=== PATIENT | male | born 1945 | race Caucasian/White ===

== ENCOUNTER 2016-05-10 20:04 | Emergency (ER) | payer OTHER ==
--- NOTE | 2016-05-10 23:26 | ED CLINICAL REPORT ---
Clinical Report - Physicians/Mid Levels [facility] [address] [place] [address] 05/10/2016 20:05 Patient: MARLENE HILLMAN Time Seen: 21:26. Arrived- By private vehicle. Historian- patient. HISTORY OF PRESENT ILLNESS Chief Complaint: FALL. Location of injuries- head. The injury occurred today. Fell. Occurred at home. The patient complains of moderate pain. The patient sustained a blow to the head. No neck pain, loss of consciousness or seizure. Not dazed. (The patient states that he was trying to get some boxes off of a high shelf and was standing about 6 feet up on a ladder in his garage. Patient tried to grab a shelf to hold onto as he was descending the ladder; however he accidentally grabbed a metal rail that was leaning against the shelving. Patient lost his balance and fell backward onto the concrete floor landing on his back and the back of his head. Patient states that he has had a headache since the incident and has felt somewhat dizzy. Patient states that he does feel pain on his "tailbone". He also states that back in his left shoulder hurts. Patient denies focal neurologic deficits no difficulty breathing or abdominal pain no chest pain no other complaints at this time.). REVIEW OF SYSTEMS No numbness, dizziness, loss of vision, hearing loss or chest pain. No difficulty breathing, weakness, nausea, abdominal pain or laceration. No fever, vomiting or urinary problems. The patient has had a headache but no pain on weight bearing. All systems otherwise negative, except as recorded above. PAST HISTORY Problems: Paget's Disease. Gerd. Hypertension. Additional Surgeries: Posterior Fossa Decompression. Prostatectomy. Sub dural hematoma. Medications: Calcium + D Oral. Multi-Vitamins Oral. Clobetasol Propionate External. ClonazePAM Oral 0.25 mg, at bedtime. Hydrochlorothiazide Oral 25 mg, daily. Aciphex Oral 20 mg, daily. Aspirin 81 mg, daily. Vitorin 1/40 ng q day. Allergies: NKDA. SOCIAL HISTORY Never smoker. No alcohol use or drug use. ADDITIONAL NOTES The nursing notes have been reviewed. PHYSICAL EXAM Vital Signs: 05/10/2016 20:43 BP: 150/94. HR: 91. RR: 16. O2 saturation: 99%. Temp: 98.7 F. Have been reviewed. Appearance: Alert. Oriented X3. No acute distress. Head: Occiput: moderate tenderness and mild swelling of the central and middle occiput. No erythema, laceration, abrasion, ecchymosis or puncture wound. No foreign body or deformity. Eyes: Pupils equal, round and reactive to light. EOM intact. ENT: No dental injury. Neck: Painless ROM. Non-tender. CVS: Heart sounds normal. Pulses normal. Respiratory: Breath sounds normal. Chest nontender. Abdomen: No visible injury. Soft and nontender. Back: Vertebral point tenderness (coccyx). ROM normal. Skin: Skin intact. Skin warm and dry. Normal skin color. Normal skin turgor. Extremities: Normal inspection. Left shoulder: moderate tenderness, mild swelling and medium sized ecchymosis. Limited ROM (diminished abduction). (involves scapula primarily). Pelvis stable. Extremities atraumatic. No lower extremity edema. Neuro: Oriented X 3. No motor deficit. No sensory deficit. LABS, X-RAYS, AND EKG Sacrum X-ray: No fracture, mass effect and bony lesion present. Soft tissues normal. Views: AP and lateral. Technique: good. The X-rays were independently viewed by me, interpreted by the radiologist and contemporaneously by me and discussed with the radiologist. Prior films were not available for comparison. Lt Scapula X-ray: No fracture. Normal alignment. No bony lesion, air in the soft tissue or foreign body. Soft tissues normal. Joint spaces normal. Views: AP and lateral. Technique: good. The X-rays were independently viewed by me and interpreted contemporaneously by me. Prior films were not available for comparison. CT Head: Normal study. No acute changes. No bony abnormalities, no hemorrhage, no intracranial mass, no midline shift and no hydrocephalus. No atrophy. Head CT performed without contrast. The study was independently viewed by me, interpreted by the radiologist and contemporaneously by me and discussed with the radiologist. Prior studies were not available for comparison. Pulse Oximetry: 05/10/2016 20:43 O2 saturation: 99%. (FIO2 - room air). Interpretation: normal. PROGRESS AND PROCEDURES C-Spine Status: Cervical spine cleared by history and physical exam. Patient alert and oriented times three and does not appear intoxicated. No distracting injury present. No complaint of neck pain. There is no neurological deficit or point tenderness on examination. Full cervical spine range of motion without pain. Course of Care: The patient was worked up in the emergency department for his pain secondary to trauma. X-rays of the scapula and sacrum/coccyx as well as head CT were unremarkable. No emergent condition was identified. Patient declined analgesia in the emergency department. Patient counseled in person regarding the patient's stable condition, test results, diagnosis and need for follow-up. Old medical records reviewed. Disposition: Discharged. Condition: stable. CLINICAL IMPRESSION Fall from ladder. (Sacral fracture). INSTRUCTIONS Apply ice. (Your head CT and shoulder x-rays look good. The top of your tailbone (sacrum) is cracked. This will heal on its own, in time. You may use a doughnut pillow to ease the discomfort of sitting. You may take pain medication, if needed.). Warnings: GENERAL WARNINGS: Return or contact your physician immediately if your condition worsens or changes unexpectedly, if not improving as expected, or if other problems arise. Your Current Medications: CONTINUE TAKING THE FOLLOWING MEDICATIONS: Aciphex Oral : 20 mg daily. Aspirin : 81 mg daily. Calcium + D Oral. Clobetasol Propionate External. ClonazePAM Oral : 0.25 mg at bedtime. Hydrochlorothiazide Oral : 25 mg daily. Multi-Vitamins Oral. Vitorin 1/40 ng q day*. Prescription Medications: Hydrocodone/APAP 5mg / 325mg: take 1-2 orally every 6 hours as needed for pain. Dispense fifteen (15). No refill. Follow-up: Follow up with your doctor as needed. Understanding of the discharge instructions verbalized by patient. (Electronically signed by Reina Tapia MD 05/20/2016 7:55)
--- NOTE | 2016-05-10 23:26 | ED ORDER SUMMARY ---
..... Patient: MARLENE HILLMAN OrderSheet [facility] VisitID: [id number] [address] [place] [address] 70y, M Registration Date/Time: 05/10/2016 ORDER SHEET Weight: 78.0 kg (stated) Allergies: NKDA GENERAL ORDERS: CT Head wo Cont Urgent (22:05/10/2016 Claudia GAN) (Ack 22:09 IJurca ER Tech1) (23:28 MCampbell) Scapula Left Urgent (22:05/10/2016 Claudia GAN) (Ack 22:09 IJurca ER Tech1) (23:28 MCampbell) Sacrum and Coccyx Urgent (22:05 05/10/2016 Claudia GAN) (Ack 22:09 MICHAELurca ER Tech1) (23:28 MCampbell) MEDICATION ORDERS: IV FLUIDS: ORDER SHEET NOTES: [Electronically signed by Ceci Jackson R.N. (00:03 05/11/2016)] [Electronically signed by Reina Tapia MD (07:55 05/20/2016)] [Electronically locked/signed by Ceci Jackson R.N. (00:03 05/11/2016)]
--- NOTE | 2016-05-10 23:26 | ED NURSING NOTES ---
Clinical Report - Nurses [facility] [address] [place] [address] 05/10/2016 20:05 Patient: MARLENE HILLMAN TRIAGE 20:25- rapid triage done in [facility]. Pt alert, oriented. no LOC at time of fall. pt painful but ok to wait in [facility] for triage. --20:26 Ceci Jackson R.N. Triage time 20:44. Chief Complaint: FALL 6-7 FEET OFF A LADDER, onto a concrete surface and landed on their back; lost balance (landed on back on top of chain saw,). 20:58. --20:58 Rand Coffey R.N. 20:43 05/10/16. BP: 150/94 taken on the right arm, via an automated monitor, while sitting. HR: 91 (regular, normal rate and strong). RR: 16 (regular, unlabored and normal). O2 saturation: 99% on room air. Temp: 98.7 F (oral). --20:58 Rand Coffey R.N. Acuity: LEVEL 3. --21:00 Rand Coffey R.N. Weight: 78 kg stated. Height/Length: 69 inches Per Patient. BMI: 25.4. --20:57 Rand Coffey R.N. Medications Aciphex Oral 20 mg, daily. Aspirin 81 mg, daily. Vitorin 1/40 ng q day. --20:48 Rand Coffey R.N. Hydrochlorothiazide Oral 25 mg, daily. --20:48 Rand Coffey R.N. ClonazePAM Oral 0.25 mg, at bedtime. --20:49 Rand Coffey R.N. Clobetasol Propionate External. --20:49 Rand Coffey R.N. Multi-Vitamins Oral. --20:50 Rand Coffey R.N. Calcium + D Oral. --20:51 Rand Coffey R.N. Allergies NKDA. --20:48 Rand Coffey R.N. History Arrived by private vehicle. Historian: patient. Unaccompanied. Location of injuries: back. This occurred (2 hours ago). Occurred at home. He has had back pain. PAST MEDICAL HX: Hypertension. SOCIAL HX: Never smoker. No alcohol use or drug use. FALL RISK ASSESSMENT: Fall risk assessment completed. No fall risk identified. NUTRITIONAL RISK ASSESSMENT: The nutritional risk assessment revealed no deficiencies. FUNCTIONAL ASSESSMENT: Functional assessment: no impairments noted. LEARNING NEEDS ASSESSMENT: The learning needs assessment revealed no barriers. SKIN INTEGRITY ASSESSMENT: Skin integrity risk assessment completed. No skin integrity risk identified. --20:58 Rand Coffey R.N. PROBLEMS: Gerd. Hypertension. --20:52 Rand Coffey R.N. Paget's Disease. --20:55 Rand Coffey R.N. ADDITIONAL SURGERIES: Prostatectomy. Sub dural hematoma. --20:55 Rand Coffey R.N. Posterior Fossa Decompression. --20:56 Rand Coffey R.N. Interventions ID band on patient. To waiting room. --21:00 Rand Coffey R.N. PHYSICAL ASSESSMENT Ambulatory to room. Patient gowned. GENERAL / NEURO / PSYCH: Alert. Oriented X 4. Appears in no acute distress. RESPIRATORY: Respirations not labored. CVS: Capillary refill less than 2 seconds. SKIN: Skin is warm and dry. --21:37 Ceci Jackson R.N. pt has psoriasis on lower back and states that he landed on a chainsaw. sm abrasion noted on lower back. --21:39 Ceci Jackson R.N. NURSING PROGRESS NOTES Two patient identifiers checked. Call light placed in reach. Side rails up x 1. Bed placed in lowest position. Brakes of bed on. --21:37 Ceci Jackson R.N. Patient ready for evaluation- chart flagged. --21:38 Ceci Jackson R.N. 21:39 05/10/16. BP: 159/67 taken while sitting. HR: 87. RR: 15. O2 saturation: 98% on room air. Porter-Dunne pain scale: 05/16. --21:40 Ceci Jackson R.N. Care transferred and report given (Ceci RN). --23:33 Fely Farrell R.N. DISPOSITION / DISCHARGE Condition at departure: stable. No learning barriers present. Discharge instructions provided and reviewed with the patient. Reviewed medication(s) side effects, precautions, dosing and course information. Prescription(s) given to the patient. Patient verbalized understanding. Written instructions provided in Syriac. The patient was discharged home. He left the Emergency Department ambulatory and via private vehicle. --00:02 Ceci Jackson R.N. 00:02 05/11/16. BP: 136/74. HR: 92. RR: 15. O2 saturation: 98% on room air. Porter-Dunne pain scale: 05/16. --00:02 Ceci Jackson R.N. Locked/Released at 05/11/2016 0:03 by Ceci Jackson R.N.
--- NOTE | 2016-05-10 23:26 | ED ORDER SUMMARY ---
..... Patient: MARLENE HILLMAN OrderSheet [facility] VisitID: [id number] [address] [place] [address] 70y, M Registration Date/Time: 05/10/2016 ORDER SHEET Weight: 78.0 kg (stated) Allergies: NKDA GENERAL ORDERS: CT Head wo Cont Urgent (22:05/10/2016 Claudia GAN) (Ack 22:09 IJurca ER Tech1) (23:28 MCampbell) Scapula Left Urgent (22:05/10/2016 Claudia GAN) (Ack 22:09 IJurca ER Tech1) (23:28 MCampbell) Sacrum and Coccyx Urgent (22:05 05/10/2016 Claudia GAN) (Ack 22:09 MICHAELurca ER Tech1) (23:28 MCampbell) MEDICATION ORDERS: IV FLUIDS: ORDER SHEET NOTES: [Electronically signed by Ceci Jackson R.N. (00:03 05/11/2016)] [Electronically signed by Reina Tapia MD (07:55 05/20/2016)] [Electronically locked/signed by Ceci Jackson R.N. (00:03 05/11/2016)]
--- NOTE | 2016-05-10 23:26 | ED NURSING NOTES ---
Clinical Report - Nurses [facility] [address] [place] [address] 05/10/2016 20:05 Patient: MARLENE HILLMAN TRIAGE 20:25- rapid triage done in [facility]. Pt alert, oriented. no LOC at time of fall. pt painful but ok to wait in [facility] for triage. --20:26 Ceci Jackson R.N. Triage time 20:44. Chief Complaint: FALL 6-7 FEET OFF A LADDER, onto a concrete surface and landed on their back; lost balance (landed on back on top of chain saw,). 20:58. --20:58 Rand Coffey R.N. 20:43 05/10/16. BP: 150/94 taken on the right arm, via an automated monitor, while sitting. HR: 91 (regular, normal rate and strong). RR: 16 (regular, unlabored and normal). O2 saturation: 99% on room air. Temp: 98.7 F (oral). --20:58 Rand Coffey R.N. Acuity: LEVEL 3. --21:00 Rand Coffey R.N. Weight: 78 kg stated. Height/Length: 69 inches Per Patient. BMI: 25.4. --20:57 Rand Coffey R.N. Medications Aciphex Oral 20 mg, daily. Aspirin 81 mg, daily. Vitorin 1/40 ng q day. --20:48 Rand Coffey R.N. Hydrochlorothiazide Oral 25 mg, daily. --20:48 Rand Coffey R.N. ClonazePAM Oral 0.25 mg, at bedtime. --20:49 Rand Coffey R.N. Clobetasol Propionate External. --20:49 Rand Coffey R.N. Multi-Vitamins Oral. --20:50 Rand Coffey R.N. Calcium + D Oral. --20:51 Rand Coffey R.N. Allergies NKDA. --20:48 Rand Coffey R.N. History Arrived by private vehicle. Historian: patient. Unaccompanied. Location of injuries: back. This occurred (2 hours ago). Occurred at home. He has had back pain. PAST MEDICAL HX: Hypertension. SOCIAL HX: Never smoker. No alcohol use or drug use. FALL RISK ASSESSMENT: Fall risk assessment completed. No fall risk identified. NUTRITIONAL RISK ASSESSMENT: The nutritional risk assessment revealed no deficiencies. FUNCTIONAL ASSESSMENT: Functional assessment: no impairments noted. LEARNING NEEDS ASSESSMENT: The learning needs assessment revealed no barriers. SKIN INTEGRITY ASSESSMENT: Skin integrity risk assessment completed. No skin integrity risk identified. --20:58 Rand Coffey R.N. PROBLEMS: Gerd. Hypertension. --20:52 Rand Coffey R.N. Paget's Disease. --20:55 Rand Coffey R.N. ADDITIONAL SURGERIES: Prostatectomy. Sub dural hematoma. --20:55 Rand Coffey R.N. Posterior Fossa Decompression. --20:56 Rand Coffey R.N. Interventions ID band on patient. To waiting room. --21:00 Rand Coffey R.N. PHYSICAL ASSESSMENT Ambulatory to room. Patient gowned. GENERAL / NEURO / PSYCH: Alert. Oriented X 4. Appears in no acute distress. RESPIRATORY: Respirations not labored. CVS: Capillary refill less than 2 seconds. SKIN: Skin is warm and dry. --21:37 Ceci Jackson R.N. pt has psoriasis on lower back and states that he landed on a chainsaw. sm abrasion noted on lower back. --21:39 Ceci Jackson R.N. NURSING PROGRESS NOTES Two patient identifiers checked. Call light placed in reach. Side rails up x 1. Bed placed in lowest position. Brakes of bed on. --21:37 Ceci Jackson R.N. Patient ready for evaluation- chart flagged. --21:38 Ceci Jackson R.N. 21:39 05/10/16. BP: 159/67 taken while sitting. HR: 87. RR: 15. O2 saturation: 98% on room air. Porter-Dunne pain scale: 05/16. --21:40 Ceci Jackson R.N. Care transferred and report given (Ceci RN). --23:33 Fely Farrell R.N. DISPOSITION / DISCHARGE Condition at departure: stable. No learning barriers present. Discharge instructions provided and reviewed with the patient. Reviewed medication(s) side effects, precautions, dosing and course information. Prescription(s) given to the patient. Patient verbalized understanding. Written instructions provided in Setswana. The patient was discharged home. He left the Emergency Department ambulatory and via private vehicle. --00:02 Ceci Jackson R.N. 00:02 05/11/16. BP: 136/74. HR: 92. RR: 15. O2 saturation: 98% on room air. Porter-Dunne pain scale: 05/16. --00:02 Ceci Jackson R.N. Locked/Released at 05/11/2016 0:03 by Ceci Jackson R.N.
--- NOTE | 2016-05-11 00:05 | DIAGNOSTIC IMAGING REPORT ---
PROCEDURE: XR SACRUM AND COCCYX INDICATION: TRAUMA/INJURY TECHNIQUE: Three views. COMPARISON: None. FINDINGS: There is an oblique coronal fracture of the mid sacrum (best seen on lateral view). The rest of the osseous structures are normal. Surgical clips overlying the pelvis. IMPRESSION: 1. Nondisplaced oblique fracture of the mid sacrum.
--- NOTE | 2016-05-11 00:17 | DIAGNOSTIC IMAGING REPORT ---
PROCEDURE: XR SCAPULA - LEFT INDICATION: TRAUMA/INJURY TECHNIQUE: Two views. COMPARISON: None. FINDINGS: Osseous structures are normal. IMPRESSION: 1. Normal left scapula.
--- NOTE | 2016-05-11 00:17 | DIAGNOSTIC IMAGING REPORT ---
PROCEDURE: XR SCAPULA - LEFT INDICATION: TRAUMA/INJURY TECHNIQUE: Two views. COMPARISON: None. FINDINGS: Osseous structures are normal. IMPRESSION: 1. Normal left scapula.
--- NOTE | 2016-05-11 00:18 | DIAGNOSTIC IMAGING REPORT ---
PROCEDURE: CT HEAD WITHOUT CONTRAST INDICATION: TRAUMA/INJURY TECHNIQUE: Noncontrast axial images with sagittal and coronal reformations. COMPARISON: Compared MRI brain on 06/02/2008. FINDINGS: There are postoperative changes of the right calvarium (suggest prior craniotomy). 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 Make sclerotic and lucencies of the skull suggests Paget's disease. Brain and ventricles are normal. No evidence of an acute process or hemorrhage. Sinuses and mastoids are normal. IMPRESSION: 1. Status post right parietal craniotomy. 2. 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 No change. 3. Otherwise negative head CT. No evidence of intracranial injury. 4. Findings discussed with Dr. Reina Tapia.. All CT scans at this facility use dose modulation, iterative reconstruction, and/or weight-based dosing when appropriate to reduce radiation dose to as low as reasonably achievable.
--- NOTE | 2016-05-20 07:55 | ED DISCHARGE INSTRUCTIONS ---
Patient: MARLENE HILLMAN General Instructions Merged With [facility] VisitID: [id number] [place] [address] 70y, M Registration Date/Time: 05/10/2016 Fall from ladder. (Sacral fracture). INSTRUCTIONS Apply ice. (Your head CT and shoulder x-rays look good. The top of your tailbone (sacrum) is cracked. This will heal on its own, in time. You may use a doughnut pillow to ease the discomfort of sitting. You may take pain medication, if needed.). Warnings: GENERAL WARNINGS: Return or contact your physician immediately if your condition worsens or changes unexpectedly, if not improving as expected, or if other problems arise. Your Current Medications: CONTINUE TAKING THE FOLLOWING MEDICATIONS: Aciphex Oral : 20 mg daily. Aspirin : 81 mg daily. Calcium + D Oral. Clobetasol Propionate External. ClonazePAM Oral : 0.25 mg at bedtime. Hydrochlorothiazide Oral : 25 mg daily. Multi-Vitamins Oral. Vitorin 1/40 ng q day*. Prescription Medications: Hydrocodone/APAP 5mg / 325mg: take 1-2 orally every 6 hours as needed for pain. Dispense fifteen (15). No refill. Follow-up: Follow up with your doctor as needed. Understanding of the discharge instructions verbalized by patient. ADDITIONAL INFORMATION Mechanical Fall You have had a fall today. It appears that the cause is mechanical. That means that you slipped, tripped or lost your balance. If your fall had been due to fainting or a seizure, further tests would be required. Home Care: Rest today and resume your normal activities when you are feeling back to normal. If you were injured during the fall, follow the advice from your doctor regarding care of your injury. You may use acetaminophen (Tylenol) or ibuprofen (Motrin, Advil) to control pain, unless another pain medicine was prescribed. [NOTE: If you have chronic liver or kidney disease or ever had a stomach ulcer or GI bleeding, talk with your doctor before using these medicines.] Fall Prevention: Was there anything that caused your fall that can be fixed, removed, or replaced? Make your home safe by keeping walkways clear of objects you may trip over. Use non-slip pads under rugs. Do not walk in poorly lit areas. Do not stand on chairs or wobbly ladders. Use caution when reaching overhead or looking upward. This position can cause a loss of balance. Be sure your shoes fit properly, have non-slip bottoms and are in good condition. Be cautious when going up and down curbs, and walking on uneven sidewalks. If your balance is poor, consider using a cane or walker. Stay as active as you can. Balance, flexibility, strength, and endurance all come from exercise. They all play a role in preventing falls. Follow Up with your doctor or as advised by our staff. Get Prompt Medical Attention if any of the following occur: Repeated mechanical falls, or unexplained falls Dizziness, fainting or seizure Severe headache Chest pain or shortness of breath Palpitations (very rapid or very slow or irregular heartbeat) Blood in vomit, stools (black or red color) Weakness of an arm or leg or one side of the face Difficulty with speech or vision You have been given the following additional information: Fall, Mechanical (Electronically signed by Reina Tapia MD 05/20/2016 7:55)
--- NOTE | 2016-05-20 07:55 | ED MED RECONCILIATION SUMMARY ---
Patient: MARLENE HILLMAN Medication Reconciliation Report [facility] VisitID: [id number] [address] [place] [address] 70y, M Registration Date/Time: 05/10/2016 Weight: 78.0 kg Height/Length: 69 in. BMI: 25.4 ALLERGIES: NKDA The patient's Home Medications are listed below: CONTINUE TAKING THE FOLLOWING MEDICATIONS: Aciphex Oral 20 mg, daily Aspirin 81 mg, daily Calcium + D Oral Clobetasol Propionate External ClonazePAM Oral 0.25 mg, at bedtime Hydrochlorothiazide Oral 25 mg, daily Multi-Vitamins Oral Vitorin 1/40 ng q day The source(s) of the original Home Medication information: Not obtained. The following Medications were given to the patient in the Emergency Department: None. The following Medications were prescribed to the patient: Hydrocodone/APAP 5mg / 325mg: take 1-2 orally every 6 hours as needed for pain. Dispense fifteen (15). No refill. -- Reina Tapia MD
--- NOTE | 2016-05-20 07:55 | ED MAR SUMMARY ---
..... Medication Administration Record [facility] [address] [place], [place] [id number] Patient: MARLENE HILLMAN Visit ID: [id number] 70y, M Weight: 78.0 kg Height/Length: 69 in BMI: 25.4 ALLERGIES: NKDA
--- NOTE | 2016-05-20 07:55 | ED MAR SUMMARY ---
..... Medication Administration Record [facility] [address] [place], [place] [id number] Patient: MARLENE HILLMAN Visit ID: [id number] 70y, M Weight: 78.0 kg Height/Length: 69 in BMI: 25.4 ALLERGIES: NKDA
--- NOTE | 2016-05-20 07:55 | ED MED RECONCILIATION SUMMARY ---
Patient: MARLENE HILLMAN Medication Reconciliation Report [facility] VisitID: [id number] [address] [place] [address] 70y, M Registration Date/Time: 05/10/2016 Weight: 78.0 kg Height/Length: 69 in. BMI: 25.4 ALLERGIES: NKDA The patient's Home Medications are listed below: CONTINUE TAKING THE FOLLOWING MEDICATIONS: Aciphex Oral 20 mg, daily Aspirin 81 mg, daily Calcium + D Oral Clobetasol Propionate External ClonazePAM Oral 0.25 mg, at bedtime Hydrochlorothiazide Oral 25 mg, daily Multi-Vitamins Oral Vitorin 1/40 ng q day The source(s) of the original Home Medication information: Not obtained. The following Medications were given to the patient in the Emergency Department: None. The following Medications were prescribed to the patient: Hydrocodone/APAP 5mg / 325mg: take 1-2 orally every 6 hours as needed for pain. Dispense fifteen (15). No refill. -- Reina Tapia MD
== END 2016-05-11 | disposition home or self-care (01) ==
LOC: ED SRH 20:04
DX: S32.10XA Unspecified fracture of sacrum, initial encounter for closed fracture (principal); W11.XXXA Fall on and from ladder, initial encounter; Y93.89 Activity, other specified; Y92.008 Other place in unspecified non-institutional (private) residence as the place of occurrence of the external cause; Y99.8 Other external cause status; I10 Essential (primary) hypertension; Z79.82 Long term (current) use of aspirin